=== PATIENT | female | born 1985 | race African-American/Black ===

== ENCOUNTER 2018-08-31 19:12 | Emergency (ER) | payer OTHER ==
[~2018-08-31] VITALS: Ht 167.6 cm; Wt 74.8 kg
[~2018-08-31 19:12] MED LIST: CLEOCIN HCL150 MG PO; DOXEPIN 50MG CA50 M1 PO; IBUPROFEN 600600 M1 PO; LORTAB; REGLAN 5 MG TAB5 M1 GT; SEROQUEL XR 30300 M1 PO; ULTRAM 50MG TAB50 MG PO; XANAX 0.5 MG0.5 MG PO; ZOFRAN4 MG
[2018-08-31] MEDS ORDERED: ZYRTEC10 M5 PO (19:32)
[2018-08-31] MEDS ORDERED: VITAFOL-OB+DHA1 EACH PO (19:32)
[2018-08-31 20:19] LABS: URINE BILIRUBIN NEGATIVE (Negative); URINE BLOOD NEGATIVE (Negative); URINE CLARITY CLEAR; URINE COLOR YELLOW; URINE GLUCOSE-RANDOM NEGATIVE (Negative); URINE KETONES NEGATIVE (Negative); URINE LEUKOCYTES-REFLEX NEGATIVE (Negative); URINE NITRITE-REFLEX NEGATIVE (Negative); URINE PROTEIN NEGATIVE (Negative); URINE SPECIFIC GRAVITY 1.015 (1.005-1.030); URINE UROBILINOGEN 0.2 E.U./dl (0.2-1.0)
[2018-08-31] MEDS ORDERED: CLARITIN10 M2 PO (22:03)
[2018-08-31 22:14] VITALS: BP 111/66
== END 2018-08-31 22:15 | disposition home or self-care (01) ==
LOC: M.ERS 19:12
PROVIDERS: Personal Emergency Response Attendant
DX: O99.511 Diseases of the respiratory system complicating pregnancy, first trimester (principal); Z3A.08 8 weeks gestation of pregnancy; R06.02 Shortness of breath; O26.891 Other specified pregnancy related conditions, first trimester; R10.2 Pelvic and perineal pain; O99.341 Other mental disorders complicating pregnancy, first trimester; F41.9 Anxiety disorder, unspecified; F32.9 Major depressive disorder, single episode, unspecified